=== PATIENT | female | born 1990 | race African-American/Black ===

== ENCOUNTER 2024-08-10 05:21 | Inpatient (IN) | payer SELFPAY ==
[2024-08-10] MEDS ORDERED: ALBUTEROL 2.5 MG/3 ML NEB SOL ONE (05:36)
[2024-08-10] MEDS ORDERED: IPRATROPIUM BROM 0.5MG/2.5ML ONE (05:36)
[2024-08-10 06:11] LABS: Influenza A Ag Negative; Influenza B Ag Negative; SARS-CoV-2 Antigen Rapid Res Negative (Negative)
[2024-08-10 06:37] LABS: Absolute Basophils 0.1 K/uL (0-0.5); Absolute Eosinophils 0.1 K/uL (0-0.5); Absolute Lymphocytes (CBC) 2.3 K/uL (0.7-4.9); Absolute Monocytes 0.5 K/uL (0.1-1.3); Absolute Neutrophil 4.4 K/uL (1.8-8.0); Basophils % 1.1 % (0-1.3); Eosinophils % 1.6 % (0-4.4); Hematocrit 39.4 % (36.0-45.0); Hemoglobin 12.8 g/dL (12.0-15.0); Lymphocytes % 31.1 % (15.3-44.8); MCH 27.7 pg (27.0-35.0); MCHC 32.6 g/dL (32.0-36.0); MCV 84.9 fL (80-100); MPV 9.3 fL (7.6-11.3); Monocytes % 6.6 % (3.3-12.3); Neutrophils % 59.6 % (41.7-73.7); Nucleated Red Blood Cells % 0.2 % (0-0); Platelets 353 thou/uL (152-406); RBC Red Blood Cell Count 4.63 M/uL (3.86-4.86); Red Cell Distribution Width 14.8 % (12.1-15.2)
[2024-08-10] MEDS ORDERED: NITROGLYCERIN 0.4 MG/TAB SL ONE (06:48)
[2024-08-10 07:04] LABS: Anion Gap 10.1 mEq/L (5.0-15.0); Magnesium 2.2 mg/dL (1.6-2.4); Potassium 3.1 mEq/L (3.5-5.1)
[2024-08-10 07:18] LABS: Troponin High Sensitivity 104.1 pg/mL (<58.9)
--- NOTE | 2024-08-10 08:50 | RAD REPORT ---
XR CHEST 1 VIEW CLINICAL INDICATION: Cough COMPARISON: None FINDINGS: SUPPORT DEVICES: None LUNGS/PLEURAL SPACES: Central pulmonary vascular congestion. Diffuse hazy opacities in left mid to lo wer lung zones could represent edema or infiltrates. No pleural effusion. No pneumothorax. HEART/MEDIASTINUM: Heart is enlarged. BONES/UPPER ABDOMEN/SOFT TISSUES: No acute findings. Status post thoracolumbar spine fusion. IMPRESSION: Central pulmonary vascular congestion. Diffuse hazy opacities in left mid to lower lung zones could r epresent edema or infiltrates. Electronically signed by: Britney Lerner MD 08/10/2024 08:03 AM [facility] Due to temporary technical issues with the PACS/[employer] reporting system, reports are being jet d by the in-house radiologist without review as a courtesy to ensure prompt reporting. The interpreting radiologist is fully responsible for the content of the report. Transcribed Date/Time: 08/10/2024 8:50 AM
--- NOTE | 2024-08-10 09:02 | ER ---
Nurse's Notes [facility] Name: Pauline Soto Age: 34 yrs Sex: Female : 1990 Arrival Date: 08/10/2024 Time: 05:21 Bed 19 Private MD: Diagnosis: CHF exacerbation;Elevated troponin Presentation: 08/10 05:34 Chief complaint: Patient states: cough, congestion, shortness of breath for a few vc1 weeks, today it was worse. Coronavirus screen: Client denies travel out of the [place] in the last 14 days. congestion, cough unrelated to allergies, shortness of breath. Ebola Screen: Patient negative for fever greater than or equal to 101.5 degrees Fahrenheit, and additional compatible Ebola Virus Disease symptoms Patient denies exposure to infectious person. Patient denies travel to an Ebola-affected area in the 21 days before illness onset. No symptoms or risks identified at this time. Initial Sepsis Screen: Does the patient meet any 2 criteria? No. Patient's initial sepsis screen is negative. Does the patient have a suspected source of infection? No. Patient's initial sepsis screen is negative. Risk Assessment: Do you want to hurt yourself or someone else? Patient reports no desire to harm self or others. Onset of symptoms is unknown. 05:34 Method Of Arrival: Ambulatory vc1 05:34 Acuity: JACQUELINE 4 vc1 Triage Assessment: 05:39 General: Appears in no apparent distress. comfortable, ill, well groomed, well vc1 developed, Behavior is calm, cooperative, appropriate for age. Pain: Denies pain. EENT: Reports nasal congestion. Neuro: Level of Consciousness is awake, alert, obeys commands, Oriented to person, place, time, situation, Appropriate for age. Cardiovascular: Capillary refill < 3 seconds Patient's skin is warm and dry. Respiratory: Reports shortness of breath cough that is Airway is patent Respiratory effort is even, unlabored, Respiratory pattern is regular, symmetrical, Onset: The symptoms/episode began/occurred a week, the patient has mild shortness of breath. GI: No deficits noted. No signs and/or symptoms were reported involving the gastrointestinal system. : No deficits noted. No signs and/or symptoms were reported regarding the genitourinary system. Derm: Skin is intact, is healthy with good turgor, Skin is dry, Skin is normal, Skin temperature is warm. Musculoskeletal: Circulation, motion, and sensation intact. Range of motion: intact in all extremities. 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 - Infectious Disease History:: Denies. - Social history:: Smoking status: Patient reports the use of cigarette tobacco products, smokes one-half pack cigarettes per day. Screenin:38 [facility] ED Fall Risk Assessment (Adult) History of falling in the last 3 months, vc1 including since admission No falls in past 3 months (0 pts) Confusion or Disorientation No (0 pts) Intoxicated or Sedated No (0 pts) Impaired Gait No (0 pts) Mobility Assist Device Used No (0 pt) Altered Elimination No (0 pt) Score/Fall Risk Level 0 - 2 = Low Risk Oriented to surroundings, Maintained a safe environment, Educated pt \T\ family on fall prevention, incl call for assistance when getting out of bed, Hourly rounding (assess needs \T\ fall precautionary measures) done. Abuse screen: Denies threats or abuse. Nutritional screening: No deficits noted. Tuberculosis screening: No symptoms or risk factors identified. Assessment: 05:25 General: Appears uncomfortable, Behavior is cooperative. Pain: Denies pain. Neuro: ha1 Level of Consciousness is awake, alert, obeys commands, Oriented to person, place, time, situation. Cardiovascular: Capillary refill < 3 seconds Patient's skin is warm and dry. Rhythm is sinus tachycardia. Respiratory: Reports shortness of breath at rest Airway is patent Respiratory effort is even, unlabored, Respiratory pattern is regular, symmetrical, Breath sounds with wheezes bilaterally. Respiratory: Reports cough that is productive. GI: No signs and/or symptoms were reported involving the gastrointestinal system. Abdomen is round obese. : No signs and/or symptoms were reported regarding the genitourinary system. Derm: Skin is normal. Musculoskeletal: Circulation, motion, and sensation intact. Range of motion: intact in all extremities. 06:10 Reassessment: Patient and/or family updated on plan of care and expected duration. Pain ha1 level reassessed. Patient is alert, oriented x 3, equal unlabored respirations, skin warm/dry/pink. Patient states feeling better. Patient states symptoms have improved. 07:00 Reassessment: RECD REPORT FROM LITA PIÑA. 34YO BF P/W SOB AND UNTREATED HTN. bp 11:26 Reassessment: Patient appears in no apparent distress at this time. Patient is alert, bp oriented x 3, equal unlabored respirations, skin warm/dry/pink. 12:28 Reassessment: REPORT FAXED FOR RM 403. bp Vital Signs: 05:34 BP 191 / 134; Pulse 111; Resp 20; Temp 98.4; Pulse Ox 99% ; Weight 79.38 kg; Height 5 vc1 ft. 1 in. ; Pain 0/10; 06:34 BP 188 / 122; Pulse 108; Resp 19 S; Pulse Ox 100% on R/A; ha1 07:04 BP 167 / 112; Pulse 111; Resp 18 S; Pulse Ox 97% on R/A; ha1 08:20 BP 179 / 109; Pulse 110; Resp 29; Pulse Ox 100% ; bp 09:07 BP 187 / 120; Pulse 102; Resp 22; Pulse Ox 100% ; bp 10:29 BP 171 / 120; Pulse 94; Resp 26; Pulse Ox 98% ; bp 11:26 BP 159 / 116; Pulse 90; Resp 14; Pulse Ox 99% ; bp 05:34 Body Mass Index 33.07 (79.38 kg, 154.94 cm) vc1 05:34 Pain Scale: Adult vc1 ED Course: 05:25 Patient arrived in ED. gm2 05:29 Jesús Mckeon MD is Attending Physician. sp3 05:37 Triage completed. vc1 05:38 Arm band placed on right wrist. vc1 05:41 Patient has correct armband on for positive identification. Bed in low position. Call vc1 light in reach. Pulse ox on. NIBP on. 05:41 COVID-19 Ag + Flu A+B Ag Sent. ha1 05:59 CXR XRAY In Process Unspecified. EDMS 06:10 Lita Marquez RN is Primary Nurse. ha1 06:15 Inserted saline lock: 22 gauge in right antecubital area, using aseptic technique. ha1 Blood collected. Flushed with 10 mL NS. 06:33 Basic Metabolic Panel Sent. ha1 06:33 CBC with Diff Sent. ha1 06:33 Magnesium Sent. ha1 06:33 NT PRO-BNP Sent. ha1 06:33 Troponin HS Sent. ha1 06:58 Attending Physician role handed off by Jesús Mckeon MD rt 06:58 North Vasquez MD is Attending Physician. rt 07:05 No provider procedures requiring assistance completed. ha1 07:07 Primary Nurse role handed off by Lita Marquez RN bp 07:07 Jamie Caro, WANG is Primary Nurse. bp 09:01 Conor Ortiz PA is Hospitalizing Provider. rt 12:29 Patient admitted, IV remains in place. bp Administered Medications: 05:41 Drug: DuoNeb Nebulize (3:1) (2.5 mg - 0.5 mg) 3 ml Nebulizer once Route: Nebulizer; ha1 06:00 Follow up: Response: No adverse reaction; Marked relief of symptoms ha1 06:50 Drug: Nitroglycerin Sublingual 0.4 mg Sublingual once Route: Sublingual; ha1 09:07 Follow up: Response: No adverse reaction bp 09:31 Drug: Furosemide IVP 40 mg IVP once; give over 2 minutes Route: IVP; Site: right bp antecubital; 12:29 Follow up: Response: No adverse reaction bp 09:31 Drug: Labetalol IV 10 mg IV at calculated rate once Route: IV; Rate: calculated rate; bp Site: right antecubital; 12:29 Follow up: IV Status: Completed infusion bp Medication: 05:41 VIS not applicable for this client. vc1 Outcome: 09:01 Decision to Hospitalize by Provider. rt 12:28 Admitted to Tele accompanied by tech, via wheelchair, room 403, with chart, bp 12:28 Condition: stable 12:28 Instructed on the need for admit, 13:06 Patient left the ED. bp Signatures: Dispatcher [employer] EDMO Jamie Caro, WANG RN bp Jesús Mckeon MD MD sp3 Ariane Lopez RN RN vc1 Lita Marquez RN RN ha1 North Vasquez MD MD rt Rebekah Wiggins gm2 Corrections: (The following items were deleted from the chart) 06:37 06:33 Reassessment: Patient and/or family updated on plan of care and expected ha1 duration. Pain level reassessed. Patient is alert, oriented x 3, equal unlabored respirations, skin warm/dry/pink. ha1
--- NOTE | 2024-08-10 09:02 | EDPHYS ---
Physician Documentation [facility] Name: Pauline Soto Age: 34 yrs Sex: Female : 1990 Arrival Date: 08/10/2024 Time: 05:21 Bed 19 Private MD: ED Physician North Vasquez HPI: 08/10 06:05 This 34 yrs old Black Female presents to ER via Ambulatory with complaints of Wheezing, sp3 Shortness Of Breath, Cough, Congestion. 06:05 34-year-old female with history of hypertension, low ejection fraction, now presents to 3 the ED with chief complaint cough and congestion for 2 weeks. Patient also states she has been out of her Entresto and Carvediol for several months due to financial challenges. Today her shortness of breath and cough got worse and so she decided come to the ED. She denies any fever, known sick contacts, chest pain, abdominal pain, syncope, vomiting, diarrhea, prolonged immobilization, or any other signs or symptoms on ROS at this time.. 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 - Infectious Disease History:: Denies. - Social history:: Smoking status: Patient reports the use of cigarette tobacco products, smokes one-half pack cigarettes per day. ROS: 06:06 Constitutional: Negative for fever, chills, and weight loss, Eyes: Negative for injury, sp3 pain, redness, and discharge, Neck: Negative for injury, pain, and swelling, Cardiovascular: Negative for chest pain, palpitations, and edema, Abdomen/GI: Negative for abdominal pain, nausea, vomiting, diarrhea, and constipation, Back: Negative for injury and pain, MS/Extremity: Negative for injury and deformity, Skin: Negative for injury, rash, and discoloration, Neuro: Negative for headache, weakness, numbness, tingling, and seizure, Psych: Negative for depression, anxiety, suicide ideation, homicidal ideation, and hallucinations, Allergy/Immunology: Negative for hives, rash, and allergies, Endocrine: Negative for neck swelling, polydipsia, polyuria, polyphagia, and marked weight changes, 06:06 All other systems are negative, Exam: 06:06 Constitutional: This is a well developed, well nourished patient who is awake, alert, sp3 and in no acute distress. Head/Face: Normocephalic, atraumatic. Neck: Trachea midline, no thyromegaly or masses palpated, and no cervical lymphadenopathy. Supple, full range of motion without nuchal rigidity, or vertebral point tenderness. No Meningismus. Chest/axilla: Normal chest wall appearance and motion. Nontender with no deformity. No lesions are appreciated. Abdomen/GI: Soft, non-tender, with normal bowel sounds. No distension or tympany. No guarding or rebound. No evidence of tenderness throughout. Back: No spinal tenderness. No costovertebral tenderness. Full range of motion. Skin: Warm, dry with normal turgor. Normal color with no rashes, no lesions, and no evidence of cellulitis. MS/ Extremity: Pulses equal, no cyanosis. Neurovascular intact. Full, normal range of motion. Neuro: Awake and alert, GCS 15, oriented to person, place, time, and situation. Cranial nerves II-XII grossly intact. Motor strength 5/5 in all extremities. Sensory grossly intact. Cerebellar exam normal. Normal gait. Psych: Awake, alert, with orientation to person, place and time. Behavior, mood, and affect are within normal limits. 06:06 Cardiovascular: Patient tachycardic to 110. Lungs have rhonchi and wheezing bilaterally. Blood pressure is elevated at 191/134 with pulse rate 111. Afebrile. 99% room air pulse oxygenation., 06:40 ECG was reviewed by the Attending Physician. EKG demonstrates sinus tachycardia at 106 sp3 bpm with normal intervals except QTc of 491, normal axis, high voltage from likely hypertrophy and nonspecific diffuse ST/T changes without evidence of acute ischemia. Vital Signs: 05:34 BP 191 / 134; Pulse 111; Resp 20; Temp 98.4; Pulse Ox 99% ; Weight 79.38 kg; Height 5 vc1 ft. 1 in. ; Pain 0/10; 06:34 BP 188 / 122; Pulse 108; Resp 19 S; Pulse Ox 100% on R/A; ha1 07:04 BP 167 / 112; Pulse 111; Resp 18 S; Pulse Ox 97% on R/A; ha1 08:20 BP 179 / 109; Pulse 110; Resp 29; Pulse Ox 100% ; bp 09:07 BP 187 / 120; Pulse 102; Resp 22; Pulse Ox 100% ; bp 10:29 BP 171 / 120; Pulse 94; Resp 26; Pulse Ox 98% ; bp 11:26 BP 159 / 116; Pulse 90; Resp 14; Pulse Ox 99% ; bp 05:34 Body Mass Index 33.07 (79.38 kg, 154.94 cm) vc1 05:34 Pain Scale: Adult vc1 MDM: 05:30 Medical Screening Exam initiated sp3 06:07 Data reviewed: vital signs, nurses notes, lab test result(s), EKG, radiologic studies. sp3 ED course: 34-year-old female with history of hypertension, low ejection fraction now with cough, congestion and wheezing. Differential diagnosis includes upper respiratory infection, viral illness, influenza, COVID-19, bronchitis, pneumonia, and also CHF exacerbation, pulmonary edema, ACS. Chest x-ray demonstrates cardiomegaly with mild pulmonary edema. EKG and labs pending including BNP. 1 nebulizer treatment ordered for both treatment as well as diagnostic purpose. Further medications as indicated with disposition pending workup and patient course.. 09:16 Differential diagnosis: CHF, bronchospasm, pneumonia. Consideration of rt Admission/Observation Patient was admitted/placed on observation. Management of patient was discussed with the following: Hospitalist: Agrees to admit. I considered the following discharge prescriptions or medication management in the emergency department Medications were administered in the Emergency Department. See MAR. Independent interpretation of the following test(s) in the Emergency Department X-Ray: My interpretation is Cardiomegaly with pulmonary edema seen on interpretation of x-ray images. Care significantly affected by the following chronic conditions: Hypertension. Counseling: I had a detailed discussion with the patient and/or guardian regarding the historical points, exam findings, and any diagnostic results supporting the discharge/admit diagnosis, lab results, radiology results, the need for further work-up and treatment in the hospital. Response to treatment: the patient's symptoms have mildly improved after treatment. 08/10 05:30 Order name: COVID-19 Ag + Flu A+B Ag; Complete Time: 06:40 sp3 08/10 05:59 Order name: Basic Metabolic Panel; Complete Time: 07:23 sp3 08/10 05:59 Order name: CBC with Diff; Complete Time: 06:56 sp3 08/10 05:59 Order name: Magnesium; Complete Time: 07:23 sp3 08/10 05:59 Order name: NT PRO-BNP; Complete Time: 07:23 sp3 08/10 05:59 Order name: Troponin HS; Complete Time: 07:23 sp3 08/10 11:41 Order name: Magnesium EDMS 08/10 11:41 Order name: Phosphorus EDMS 08/10 11:41 Order name: Basic Metabolic Panel EDMS 08/10 11:41 Order name: Basic Metabolic Panel EDMS 08/10 11:41 Order name: Basic Metabolic Panel EDMS 08/10 11:41 Order name: Basic Metabolic Panel EDMS 08/10 11:41 Order name: Basic Metabolic Panel EDMS 08/10 11:41 Order name: CBC with Automated Diff EDMS 08/10 11:41 Order name: CBC with Automated Diff EDMS 08/10 11:41 Order name: CBC with Automated Diff EDMS 08/10 11:41 Order name: CBC with Automated Diff EDMS 08/10 11:41 Order name: CBC with Automated Diff EDMS / 11:41 Order name: Troponin High Sensitivity EDMS 08/10 05:30 Order name: CXR XRAY; Complete Time: 08:59 sp3 08/10 11:41 Order name: Echo with Doppler EDMS 08/10 05:59 Order name: EKG; Complete Time: 06:00 sp3 08/10 05:59 Order name: Cardiac monitoring; Complete Time: 06:33 sp3 08/10 05:59 Order name: EKG - Nurse/Tech; Complete Time: 06:33 sp3 08/10 05:59 Order name: IV Saline Lock; Complete Time: 06:18 sp3 08/10 05:59 Order name: Labs collected and sent; Complete Time: 06:18 sp3 08/10 05:59 Order name: O2 Per Protocol; Complete Time: 06:18 sp3 08/10 05:59 Order name: O2 Sat Monitoring; Complete Time: 06:18 sp3 Administered Medications: 05:41 Drug: DuoNeb Nebulize (3:1) (2.5 mg - 0.5 mg) 3 ml Nebulizer once Route: Nebulizer; 1 06:00 Follow up: Response: No adverse reaction; Marked relief of symptoms ha1 06:50 Drug: Nitroglycerin Sublingual 0.4 mg Sublingual once Route: Sublingual; ha1 09:07 Follow up: Response: No adverse reaction bp 09:31 Drug: Furosemide IVP 40 mg IVP once; give over 2 minutes Route: IVP; Site: right bp antecubital; 12:29 Follow up: Response: No adverse reaction bp 09:31 Drug: Labetalol IV 10 mg IV at calculated rate once Route: IV; Rate: calculated rate; bp Site: right antecubital; 12:29 Follow up: IV Status: Completed infusion bp Disposition Summary: 08/10/24 09:01 Hospitalization Ordered Notes: Hospitalization Status: Observation rt Provider: Conor Ortiz rt Location: Telemetry/MedSurg (observation) rt Condition: Stable rt Problem: an acute exacerbation rt Symptoms: have improved rt Bed/Room Type: Standard rt Room Assignment: 403(08/10/24 11:51) sp Diagnosis - CHF exacerbation rt - Elevated troponin rt Discharge Instructions: - Discharge Summary Sheet sp3 Forms: - Medication Reconciliation Form rt - SBAR form rt - Leadership Thank You Letter rt Signatures: Dispatcher [employer] EDMS Jossie Starks Jose, RN RN ja1 Jamie Caro RN RN Jesús Medrano MD MD sp3 Ariane Lopez RN RN Miryam Mabry RN RN ha1 North Vasquez MD MD rt Corrections: (The following items were deleted from the chart) 05:30 05:30 COVID-19 Ag + Flu A+B Ag+I.LAB.BRZ ordered. EDMS EDMS 05:30 05:30 Chest Single View+RAD.RAD.BRZ ordered. EDMS EDMS 11:47 09:01 rt ja1 11:51 11:47 410 ja1 sp
[2024-08-10] MEDS ORDERED: FUROSEMIDE 40 MG/4 ML VIAL ONE (09:23)
[2024-08-10] MEDS ORDERED: LABETALOL 20 MG/4ML SYRINGE IV ONE (09:23)
--- NOTE | 2024-08-10 11:49 | P.HP ---
Certification for Inpatient With expected LOS: >2 Midnights Patient will require the following post-hospital care: None Practitioner: I am a practitioner with admitting privileges, knowledge of patient current condition, hospital course, and medical plan of care. Services: Services provided to patient in accordance with Admission requirements found in Title 42 Section 412.3 of the Code of Federal Regulations Patient History Date of Service: 08/10/24 History of Present Illness: 34-year-old patient presents with shortness of breath and cough for the last 2 to 3 weeks, she was found to have acute on chronic CHF, given diuretics in the ED and we were asked admit her for further evaluation. She has a chronic systolic heart failure, she is supposed to be taking Entresto and carvedilol but due to some insurance she is not taking any medications at this time. She denies any weight gain recently. No lower extremity edema. Of note, she adds extra salt to the food, she eats chips, pickles and canned vegetables etc. No headache or blackouts. No double vision or blurry vision. No chest pain. No nausea or vomiting. No abdominal pain. No constipation or diarrhea. No blood in the urine or stool. No fever. No joint pains. No recent change in the weight. Review of systems: All other 10 point review of systems are negative other than as mentioned above. Allergies and medications: Reviewed, as per [employer] EMR. Past medical history: Chronic systolic heart failure, hypertension, obesity Past surgical history: Spinal fusion Social history: No drugs. Positive for cigarette smoking. Occasional alcohol. Family history: Dad had history of AK, grandmother had history of CVA Physical examination: Vital signs: Reviewed, as per EMR. General appearance: Alert and comfortable HEENT: Extraocular movements intact, oral mucosa moist. 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 Acute on chronic systolic heart failure: Will start her on IV Lasix, resume Entresto and carvedilol, will get an echocardiogram, monitor volume status closely. I Discussed with the patient about dietary compliance. Will monitor I's and O's. 2. Elevated troponin, mild, probably secondary to acute CHF, patient denies any chest pain, will repeat troponins, and get an echo, cardiology consult requested. 3. Hypertension: Continue Coreg. 4. Hypokalemia: Replace and monitor. 5. Obesity: Consider weight loss, follow-up with PCP. DVT prophylaxis: Lovenox CODE STATUS: She would like to be full code. I Did discuss all the above mentioned plan with the patient, she understands and agrees with the plan. She will be admitted to the hospital as inpatient as she requires more than 2 midnights of hospitalization. - Advance Directives Does patient have a Living Will: No Does patient have a Durable POA for Healthcare: No - Code Status/Comfort Care Code Status Assessed: Yes Code Status: Full Code
[2024-08-10 13:38] VITALS: BMI 36.4
[2024-08-10] MEDS: POTASSIUM 25 MEQ EFFERV TAB PO ONE (13:48)
[2024-08-10] MEDS: carvediloL 3.125 MG TAB PO SCH (13:49)
[2024-08-10] MEDS: SACUBITRIL/VALSARTAN 24/26 MG TAB PO SCH (13:49)
[2024-08-10] MEDS: HYDRALAZINE HCL 20 MG/ML VIAL IV PRN (16:06)
[2024-08-10] MEDS: FUROSEMIDE 40 MG/4 ML VIAL IV SCH (16:06)
--- NOTE | 2024-08-10 16:45 | P.PN ---
Nursing staff notified me to come and see the patient as she is complaining of b/l hand numbness, her blood pressure was running high, so the nursing staff gave her scheduled medications and as needed medications, her blood pressure dropped from 170 to 110, then she started feeling numbness of both hands, I went to see her right away, she was complaining of mild numbness in both hands and also mild numbness in both feet, feeling generalized weakness and dizziness, I think this is symptomatic hypotension and neuro symptoms from global hypoperfusion, all blood pressure medications discontinued and Lasix discontinued as well, her shortness of breath is better now, no chest pain. No trouble with speaking. 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 Symptomatic hypotension, neurological symptoms are due to global hypoperfusion, code stroke activated to make sure, stat CT head, stat CTA head and neck was ordered, discussed with Dr. Oliva from neurology, he also agrees with this is symptomatic hypotension, will give her a small fluid bolus, and monitor closely.
--- NOTE | 2024-08-10 17:01 | RAD REPORT ---
EXAM: CT brain without contrast HISTORY: numbness COMPARISON: None TECHNIQUE: Multiple contiguous axial images were obtained and a CT of the brain without contrast. Sag ittal and coronal reformats were performed. One or more of the following dose reduction techniques were used: Automated exposure control, adjust ment of the mA and/or kV according to patient size, and/or iterative reconstruction. FINDINGS: No evidence of hydrocephalus, intracranial hemorrhage, or extra-axial fluid collection. The brain is normal in morphology. No evidence of midline shift or areas of brain edema. The calvarium is intact. The visualized paranasal sinuses and mastoid air cells are essentially clear . IMPRESSION: No evidence of acute intracranial abnormality.
--- NOTE | 2024-08-10 17:05 | RAD REPORT ---
EXAMINATION: CTA HEAD CLINICAL INDICATION: numbness TECHNIQUE: Axial CT images were obtained through the head after intravenous contrast utilizing angiog raphic protocol with 3D post-processing (maximum intensity projection images, volume rendered images and/or shaded surface rendered images). One or more of the following dose reduction technique s were used: Automated exposure control, adjustment of the mA and/or kV according to patient size, and/or iterative reconstruction. Unless otherwise specified, incidental findings do not require dedic ated imaging follow-up. COMPARISON: No prior exam. FINDINGS: ICA: The petrous, cavernous, and supraclinoid segments of the bilateral internal carotid arteries are normal. The ophthalmic artery origins are visualized and normal. The posterior communicating arteries are patent. JOHN: Anterior cerebral arteries are normal bilaterally. The anterior communicating artery is patent. MCA: Middle cerebral arteries are normal bilaterally. 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 Vertebrobasilar: The vertebral arteries are patent, slightly left-sided dominant. The basilar artery is normal in appearance. 3D images confirm these findings. IMPRESSION: No significant flow abnormality is identified.
--- NOTE | 2024-08-10 17:06 | RAD REPORT ---
EXAMINATION: CTA NECK CLINICAL INDICATION: numbness TECHNIQUE: Axial CT images were obtained from the aortic arch to the skull base after intravenous con trast utilizing angiographic protocol with 3D post-processing (maximum intensity projection images, volume rendered images and/or shaded surface rendered images). One or more of the following dose redu ction techniques were used: Automated exposure control, adjustment of the mA and/or kV according to patient size, and/or iterative reconstruction. Unless otherwise specified, incidental findings do not require dedicated imaging follow-up. COMPARISON: No prior exam. FINDINGS: AORTA: The imaged aortic arch is normal. CCA: The common carotid arteries are patent and normal in caliber. ICA/ECA: Bilateral internal and external carotid arteries are patent. There is no significant interna l carotid artery stenosis. VERTEBRAL: The cervical vertebral arteries are patent. The vertebral arteries are codominant. SOFT TISSUE: No significant neck soft tissue abnormalities. The visualized lung apices are clear. 3D images confirm these findings. IMPRESSION: No significant flow abnormality of the neck vessels is identified. NASCET criteria used. Mild 0-49% stenosis Moderate 50-69% stenosis Severe 70-99% stenosis
[2024-08-10] MEDS: NA CHLORIDE 0.9% 250 ML IV ONE (17:15)
[2024-08-10] MEDS: ASPIRIN EC 81 MG TAB PO SCH (17:56)
[2024-08-10] MEDS ORDERED: carvediloL 3.125 MG TAB PO SCH (18:00)
[2024-08-10 18:28] LABS: Absolute Eosinophils 0.1 K/uL (0-0.5); Absolute Lymphocytes (CBC) 1.5 K/uL (0.7-4.9); Absolute Monocytes 0.5 K/uL (0.1-1.3); Absolute Neutrophil 10.1 K/uL (1.8-8.0); Basophils % 0.2 % (0-1.3); Hematocrit 40.7 % (36.0-45.0); Hemoglobin 13.2 g/dL (12.0-15.0); Lymphocytes % 12.1 % (15.3-44.8); MCH 27.5 pg (27.0-35.0); MCHC 32.6 g/dL (32.0-36.0); MCV 84.4 fL (80-100); MPV 9.1 fL (7.6-11.3); Monocytes % 3.9 % (3.3-12.3); Neutrophils % 82.8 % (41.7-73.7); Nucleated Red Blood Cells % 0.1 % (0-0); Platelets 365 thou/uL (152-406); RBC Red Blood Cell Count 4.82 M/uL (3.86-4.86); Red Cell Distribution Width 14.8 % (12.1-15.2)
[2024-08-10 18:48] LABS: ALT/SGPT 19 U/L (13-56); AST/SGOT 26 U/L (15-37); Albumin 3.3 g/dL (3.4-5.0); Albumin/Globulin Ratio 0.7 (1.1-1.8); Alkaline Phosphatase 104 U/L (45-117); Anion Gap 11.1 mEq/L (5.0-15.0); BUN Blood Urea Nitrogen 13 mg/dL (7-18); Bicarbonate 25 mEq/L (21-32); Bilirubin Total 0.4 mg/dL (0.2-1.0); Glomerular Filtration Rate 80 ml/min (=/>90); Glucose Level 151 mg/dL (74-106); HDL Cholesterol 58 mg/dL (40-60); LDL Cholesterol, Calculated 124 mg/dL (<130); LDL Cholesterol,Calc NonReport 124; Potassium 3.1 mEq/L (3.5-5.1); Protein, Total 8.3 g/dL (6.4-8.2); Sodium Level 133 mEq/L (136-145)
[2024-08-10 18:54] LABS: Bilirubin Direct < 0.2 mg/dL (0-0.2); Bilirubin Indirect, Calculated 0.2 mg/dL (0.2-0.8)
[2024-08-10 18:55] LABS: Troponin High Sensitivity 77.1 pg/mL (<58.9)
[2024-08-10] MEDS: ATORVASTATIN 40 MG TAB PO SCH (20:30)
[2024-08-10] MEDS ORDERED: SACUBITRIL/VALSARTAN 24/26 MG TAB PO SCH (21:00)
[2024-08-11 06:34] LABS: Absolute Eosinophils 0.1 K/uL (0-0.5); Absolute Lymphocytes (CBC) 1.9 K/uL (0.7-4.9); Absolute Monocytes 0.6 K/uL (0.1-1.3); Absolute Neutrophil 5.7 K/uL (1.8-8.0); Basophils % 0.6 % (0-1.3); Eosinophils % 1.6 % (0-4.4); Hematocrit 37.7 % (36.0-45.0); Hemoglobin 12.4 g/dL (12.0-15.0); Lymphocytes % 23.1 % (15.3-44.8); MCH 27.7 pg (27.0-35.0); MCHC 32.9 g/dL (32.0-36.0); MCV 84.3 fL (80-100); MPV 8.9 fL (7.6-11.3); Neutrophils % 67.7 % (41.7-73.7); Nucleated Red Blood Cells % 0.1 % (0-0); Platelets 356 thou/uL (152-406); RBC Red Blood Cell Count 4.47 M/uL (3.86-4.86); Red Cell Distribution Width 14.7 % (12.1-15.2)
[2024-08-11 06:39] LABS: PT Prothrombin Time 12.6 SECONDS (10.0-13.0); Protime INR 1.11
[2024-08-11 06:45] LABS: Anion Gap 11.1 mEq/L (5.0-15.0); Magnesium 2.3 mg/dL (1.6-2.4); Phosphorus 3.3 mg/dL (2.5-4.9); Potassium 3.1 mEq/L (3.5-5.1)
[2024-08-11] MEDS: ENOXAPARIN 40 MG/0.4 ML SQ SCH (07:36)
[2024-08-11] MEDS: POTASSIUM CL SA 10 MEQ TAB PO ONE ×2 (08:57→15:57)
[2024-08-11] MEDS: SACUBITRIL/VALSARTAN 24/26 MG TAB PO SCH (08:58)
[2024-08-11] MEDS: carvediloL 3.125 MG TAB PO SCH (08:58)
[2024-08-11] MEDS: FUROSEMIDE 40 MG/4 ML VIAL IV SCH (08:58)
--- NOTE | 2024-08-11 10:50 | P.CNS ---
Date of Consult: 08/11/24 Chief Complaint: heart failure History of Present Illness: Patient with PMH of heart failure mild reduced EF per patient, most likely secondary to history of pre eclampsia, presented with worsening SOB, feels better today after IV diuresis, denies any other cardiac symptoms. Allergies No Known Allergies Allergy (Unverified 08/10/24 11:45) Home medications list reviewed: Yes Home Medications: Carvedilol [Coreg] 1 tab PO DAILY 08/10/24 Sacubitril/Valsartan [Entresto 49 mg-51 mg Tablet] 1 tab PO DAILY 08/10/24 - Past Medical/Surgical History Diabetic: No -: Hypertension -: spinal fusion - Family History Mother Medical History: Hypertension Notes: brain aneurysm Father Medical History: Heart disease, Hypertension, Liver disease - Social History Smoking Status: Current every day smoker Alcohol use: Yes CD- Drugs: No Caffeine use: Yes Place of Residence: Home Review of Systems 10-point ROS is otherwise unremarkable Physical Examination Temp Pulse Resp BP Pulse Ox 98.1 F 103 H 20 1432/86 H 99 08/11/24 08:00 08/11/24 08:58 08/11/24 08:00 08/11/24 08:58 08/11/24 08:00 General: Alert, In no apparent distress HEENT: Atraumatic, PERRLA, Mucous membr. moist/pink, EOMI, Sclerae nonicteric Neck: Supple, 2+ carotid pulse no bruit, No LAD, Without JVD or thyroid abnormality Respiratory: Clear to auscultation bilaterally, Normal air movement Cardiovascular: Regular rate/rhythm, Normal S1 S2 Gastrointestinal: Normal bowel sounds, No tenderness Musculoskeletal: No tenderness Integumentary: No rashes Neurological: Normal gait, Normal speech, Normal tone, Normal affect Lymphatics: No axilla or inguinal lymphadenopathy - Problems (1) Acute on chronic systolic (congestive) heart failure Current Visit: Yes Status: Acute Plan: increase Coreg to 6.25 mg po BID Stop Entresto, patient is not insured and unable to offer medicine start losartan 25 mg daily start aldactone 25 mg daily switch to lasix 40 mg daily at discharge outpatient follow up with cardiology.
--- NOTE | 2024-08-11 12:06 | EKG ---
Test Date: 2024-08-10 Test Time: 06:24:39 [employer]: NICK MEASUREMENT RESULTS: Intervals: Rate: 106 ND: 134 QRSD: 90 QT: 370 QTc: 491 [place]: P: 55 ND: 134 QRS: 48 T: 36 INTERPRETIVE STATEMENTS: Sinus tachycardia Biatrial enlargement Left ventricular hypertrophy Nonspecific T wave abnormality Abnormal ECG No previous ECG available for comparison Electronically Signed On 08-11-24 12:03:15 [employer] PSYCHI[employer]ST by Donn Hardy
--- NOTE | 2024-08-11 12:26 | ECHO ---
HEIGHT: 5 ft 1 in WEIGHT: 192 lb 12.8 oz DATE OF STUDY: 08/11/[address]: Conor Ortiz 2-DIMENSIONAL: YES M.MODE: YES DOPPLER: YES COLOR FLOW: YES TDS: PORTABLE: YES DEFINITY: BUBBLE STUDY: DIAGNOSIS: CONGESTIVE HEART FAILURE CARDIAC HISTORY: CATHERIZATION: NO SURGERY: NO PROSTHETIC VALVE: NO PACEMAKER: NO MEASUREMENTS (cm) DIASTOLIC (NORMALS) SYSTOLIC (NORMALS) IVSd 1.4 (0.6-1.2) LA Diam 1.9 (1.9-4.0) LVEF 30-35% LVIDd 4.6 (3.5-5.7) LVIDs 4.1 (2.0-3.5) %FS LVPWd 1.4 (0.6-1.2) Ao Diam 2.8 (2.0-3.7) 2 DIMENSIONAL ASSESSMENT: RIGHT ATRIUM: NORMAL LEFT ATRIUM: NORMAL RIGHT VENTRICLE: NORMAL LEFT VENTRICLE: NORMAL TRICUSPID VALVE: TRACE TRICUSPID REGURGITATION MITRAL VALVE: NORMAL PULMONIC VALVE: NORMAL AORTIC VALVE: NORMAL PERICARDIAL EFFUSION: NONE AORTIC ROOT: NORMAL LEFT VENTRICULAR WALL MOTION: MODERATE GLOBAL HYPOKINESIS DOPPLER/COLOR FLOW: GRADE II DIASTOLIC DYSFUNCTION COMMENTS: 1. MODERATELY REDUCED LEFT VENTRICULAR SYSTOLIC FUNCTION, EJECTION FRACTION 30-35%, MODERATE GLOBAL HYPOKINESIS 2. GRADE II DIASTOLIC DYSFUNCTION 3. NORMAL FILLING PRESSURE (RIGHT ATRIAL PRESSURE 0-5 mmHg) TECHNOLOGIST: KALYAN CAAL
--- NOTE | 2024-08-11 16:00 | P.PN ---
Subjective Date of Service: 08/11/24 Chief Complaint: heart failure Subjective: No chest pain or shortness of breath. No nausea or vomiting. No abdominal pain. No obvious bleeding. Looks comfortable in the bed. No numbness or weakness. 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 Physical Examination - Vital Signs Temperature: 98.1 F Blood Pressure: 143/84 Pulse: 96 Respirations: 18 Pulse Ox (%): 97 Assessment And Plan - Plan Assessment and plan: 1. Acute on chronic systolic and diastolic heart failure: continue IV Lasix, Entresto and carvedilol -echocardiogram showed 30-35% EF, G2DD, monitor volume status closely. -I Discussed with the patient about dietary compliance. Will monitor I's and O' s. -Cardiology consult appreciated. 2. Elevated troponin, mild, probably secondary to acute CHF, patient denies any chest pain, repeat troponins, down trending, cardiology consult on board 3. Hypertension: Continue Coreg. 4. Hypokalemia: Replace and monitor. 5. Obesity: Consider weight loss, follow-up with PCP. 6. Symptomatic hypotension yesterday, better today. All neurological symptoms resolved. CT head, CTA head and neck negative. DVT prophylaxis: Lovenox CODE STATUS: She would like to be full code. I Did discuss all the above mentioned plan with the patient, she understands and agrees with the plan.
[2024-08-11] MEDS: SPIRONOLACTONE 25 MG TABLET PO SCH (16:16)
[2024-08-11] MEDS: carvediloL 6.25 MG TAB PO SCH (21:08)
[2024-08-11 21:28] VITALS: O2SAT 96
[2024-08-11] MEDS: BENZONATATE 100 MG CAP PO PRN (21:32)
[2024-08-11] MEDS: GUAIFENESIN 600 MG SA TAB PO SCH (21:32)
[2024-08-12 04:53] LABS: Absolute Eosinophils 0.1 K/uL (0-0.5); Absolute Lymphocytes (CBC) 0.8 K/uL (0.7-4.9); Absolute Monocytes 0.7 K/uL (0.1-1.3); Absolute Neutrophil 3.1 K/uL (1.8-8.0); Basophils % 0.5 % (0-1.3); Eosinophils % 2.3 % (0-4.4); Hematocrit 36.8 % (36.0-45.0); Hemoglobin 12.5 g/dL (12.0-15.0); Lymphocytes % 16.7 % (15.3-44.8); MCH 28.3 pg (27.0-35.0); MCHC 33.9 g/dL (32.0-36.0); MCV 83.4 fL (80-100); MPV 9.4 fL (7.6-11.3); Neutrophils % 65.5 % (41.7-73.7); Nucleated Red Blood Cells % 0.1 % (0-0); Platelets 294 thou/uL (152-406); RBC Red Blood Cell Count 4.42 M/uL (3.86-4.86); Red Cell Distribution Width 14.5 % (12.1-15.2)
[2024-08-12 05:06] LABS: Anion Gap 8.7 mEq/L (5.0-15.0); Magnesium 2.1 mg/dL (1.6-2.4); Phosphorus 2.5 mg/dL (2.5-4.9); Potassium 3.7 mEq/L (3.5-5.1)
[2024-08-12] MEDS ORDERED: carvediloL 12.5 MG TAB PO SCH ×2 (08:30→18:00)
[2024-08-12] MEDS: POTASSIUM CL SA 10 MEQ TAB PO ONE (10:06)
[2024-08-12] MEDS: POTASS/SODIUM PHOSPHATE 1 PKT POWD.PACK PO ONE (10:06)
[2024-08-12] MEDS: carvediloL 6.25 MG TAB PO ONE (10:18)
--- NOTE | 2024-08-12 11:13 | P.PN ---
Subjective Date of Service: 08/12/24 Chief Complaint: heart failure Subjective: No new changes, No C/O voiced, Tolerating diet, Ambulating, Improving Review of Systems 10-point ROS is otherwise unremarkable Physical Examination - Vital Signs Temperature: 98.5 F Blood Pressure: 164/93 Pulse: 100 Respirations: 16 Pulse Ox (%): 99 - Physical Exam General: Alert, In no apparent distress HEENT: Atraumatic, PERRLA, EOMI Neck: Supple, JVD not distended Respiratory: Clear to auscultation bilaterally, Normal air movement Cardiovascular: Regular rate/rhythm, Normal S1 S2 Gastrointestinal: Normal bowel sounds, No tenderness Musculoskeletal: No tenderness Integumentary: No rashes Neurological: Normal speech, Normal tone, Normal affect Lymphatics: No axilla or inguinal lymphadenopathy - Studies Medications List Reviewed: Yes Assessment And Plan - Current Problems (Diagnosis) (1) Acute on chronic systolic (congestive) heart failure Current Visit: Yes Status: Acute Plan: Coreg 12.5 mg po BID losartan 25 mg daily aldactone 25 mg daily switch to lasix 40 mg daily at discharge outpatient follow up with cardiology.
--- NOTE | 2024-08-12 11:28 | P.DS ---
Admission Date: 08/10/24 Discharge Date: 08/12/24 Disposition: AMA-LEFT AGAINST MEDICAL ADVIC Reason for Admission: heart failure Hospital Course: 34 yo Patient admitted with acute on chronic systolic heart failure, started on diuretics, blood pressure was poorly controlled, resumed blood pressure medications, as she was given all the medications at one time, blood pressure suddenly dropped, she developed neurological symptoms from sudden drop in blood pressure, CTA head and neck, CT head was negative, blood pressure medications were slowly initiated, she was getting IV Lasix, her volume status is improving, blood pressure is still high, she is still tachycardic as well, medications being adjusted but unfortunately she left AGAINST MEDICAL ADVICE today so we were not able to give any prescriptions or follow-ups to her. 1. Acute on chronic systolic and diastolic heart failure: on IV Lasix, Entresto and carvedilol, entresto switched to lisinopril due to insurance issues -echocardiogram showed 30-35% EF, G2DD -I Discussed with the patient about dietary compliance. -Cardiology consult appreciated. 2. Elevated troponin, mild, probably secondary to acute CHF, patient denies any chest pain, repeat troponins down trending, cardiology consult on board 3. Hypertension: Continue Coreg and other meds, dose beiing adjsuted. 4. Hypokalemia: Replaced, monitor. 5. Obesity: Consider weight loss, follow-up with PCP. 6. Symptomatic hypotension-resolved. All neurological symptoms resolved. CT head, CTA head and neck negative. Subjective: No chest pain or shortness of breath. No nausea or vomiting. No abdominal pain. No obvious bleeding. Looks comfortable in the bed. No weakness. Objective: General appearance: Alert and comfortable CVS: Normal S1 and S2 Lungs: Clear to auscultation bilaterally Abdomen: Soft, bowel sounds present, no tenderness Extremities: No lower extremity edema Vital Signs/Physical Exam: Temp Pulse Resp BP Pulse Ox 98.5 F 100 H 16 164/93 H 99 08/12/24 11:13 08/12/24 11:13 08/12/24 11:13 08/12/24 11:13 08/12/24 11:13 Laboratory Data at Discharge: WBC 4.80 thou/uL (4.3-10.9) 08/12/24 04:37 Hgb 12.5 g/dL (12.0-15.0) 08/12/24 04:37 Hct 36.8 % (36.0-45.0) 08/12/24 04:37 Plt Count 294 thou/uL (152-406) 08/12/24 04:37 PT 12.6 SECONDS (10.0-13.0) H 08/11/24 06:17 INR 1.11 08/11/24 06:17 Sodium 129 mEq/L (136-145) L D 08/12/24 04:37 Potassium 3.7 mEq/L (3.5-5.1) D 08/12/24 04:37 BUN 12 mg/dL (7-18) 08/12/24 04:37 Creatinine 0.85 mg/dL (0.55-1.02) 08/12/24 04:37 Glucose 102 mg/dL (74-106) 08/12/24 04:37 Phosphorus 2.5 mg/dL (2.5-4.9) 08/12/24 04:37 Magnesium 2.1 mg/dL (1.6-2.4) 08/12/24 04:37 Total Bilirubin 0.4 mg/dL (0.2-1.0) 08/10/24 18:25 AST 26 U/L (15-37) 08/10/24 18:25 ALT 19 U/L (13-56) 08/10/24 18:25 Alkaline Phosphatase 104 U/L (45-117) 08/10/24 18:25 Triglycerides Cancelled 08/10/24 Unknown Cholesterol Cancelled 08/10/24 Unknown HDL Cholesterol Cancelled 08/10/24 Unknown Cholesterol/HDL Ratio Cancelled 08/10/24 Unknown Home Medications: RX: Carvedilol [Coreg] 1 tab PO DAILY 08/10/24 Sacubitril/Valsartan [Entresto 49 mg-51 mg Tablet] 1 tab PO DAILY 08/10/24 Followup: NONE,NONE [Primary Care Provider] - Time spent managing pt's care (in minutes): 45
[2024-08-12 11:36] VITALS: BP 147/93; TEMP 98.1
[2024-08-12] MEDS ORDERED: lisinopriL 10 MG TAB PO SCH (19:00)
== END 2024-08-12 11:44 | disposition left against medical advice (07) | DRG 291 ==
LOC: ER 05:21 → ERHOLD 11:33 → 4TH 12:25
PROVIDERS: ADMIT Hospitalist; ATTEND Hospitalist
DX: I11.0 Hypertensive heart disease with heart failure (principal); I50.43 Acute on chronic combined systolic (congestive) and diastolic (congestive) heart failure; E87.6 Hypokalemia; E66.9 Obesity, unspecified; I95.9 Hypotension, unspecified; D72.829 Elevated white blood cell count, unspecified; F17.210 Nicotine dependence, cigarettes, uncomplicated; Z11.52 Encounter for screening for COVID-19; Z68.36 Body mass index [BMI] 36.0-36.9, adult; Z79.02 Long term (current) use of antithrombotics/antiplatelets; Z53.29 Procedure and treatment not carried out because of patient's decision for other reasons; Z79.899 Other long term (current) drug therapy; Z91.148 Patient's other noncompliance with medication regimen for other reason
CPT/HCPCS: 36415; 70450; 70496; 70498; 71045; 80048; 80061; 80076; 82947; 83036; 83735; 83880; 84100; 84484; 85025; 85610; 87428; 93005; 93306; 96365; 96366; 96375; 99285; J0360; J1650; J1940; J7050; J7613; J7644; Q9967